=== PATIENT | female | born 1960 | race Caucasian/White ===

== ENCOUNTER 2018-02-07 09:53 | Emergency (ER) | payer OTHER ==
[~2018-02-07] VITALS: Ht 162.6 cm; Wt 69.0 kg
[2018-02-07 09:55] VITALS: TEMP 36.3; Ht 162.6 cm; Wt 69.0 kg
[2018-02-07] MEDS ORDERED: ONDANSETRON INJ 2 MG/ML 2 ML VIAL IV STA (10:17)
[2018-02-07] MEDS ORDERED: MoRPHine SULFATE 10 MG/ML CARP/VIAL IV STA ×2 (10:17→10:49)
[2018-02-07] MEDS ORDERED: PROB1TAB16 PO (11:06)
[2018-02-07] MEDS ORDERED: CLON1TAB3 PO (11:06)
[2018-02-07] MEDS ORDERED: METH10TA4 PO ×2 (11:06)
[2018-02-07] MEDS ORDERED: BACL10TA PO (11:06)
[2018-02-07] MEDS ORDERED: PRMT25 PO (11:06)
[2018-02-07] MEDS ORDERED: [UNRECOGNIZED DRUG - OTHER] IV (11:06)
[2018-02-07] MEDS ORDERED: ERGO500037 PO (11:06)
[2018-02-07] MEDS ORDERED: MILK OF MAGNESIA PO (11:06)
[2018-02-07] MEDS ORDERED: IVIG IV (11:06)
[2018-02-07] MEDS ORDERED: CTP/1 PO (11:06)
[2018-02-07] MEDS ORDERED: [UNRECOGNIZED DRUG - OTHER] IR (11:06)
[2018-02-07] MEDS ORDERED: SODIUM CHLORIDE 0.9% 1000ML 1,000 ML IV STA (11:14)
--- NOTE | 2018-02-07 11:18 | DIAGNOSTIC IMAGING REPORT ---
LEFT WRIST 2 VIEWS HISTORY: Left wrist pain. LEFT WRIST, EVAL FX COMPARISON: None. FINDINGS: Comminuted fractures involving the distal radius and ulna. The radial fracture extends to the articular surface. Both of these fractures demonstrate dorsal displacement of 12 mm. Soft tissue swelling. The carpal bones appear intact. No radiopaque foreign bodies. IMPRESSION: Comminuted and displaced distal radius and ulnar fractures Electronically signed by: Cornelius Mills M.D. 02/07/2018 11:17 AM Dictated Date/Time: 02/07/2018 11:16 AM
[2018-02-07] MEDS ORDERED: LIDOCAINE 1% BUFFERED INJ 5 ML VIAL INFIL ONE (11:30)
[2018-02-07] MEDS ORDERED: PROPOFOL IV EMULSION 10 MG/ML 20 ML VIAL IV ONE (11:47)
[2018-02-07] MEDS ORDERED: ONDA4TAB10 SL (12:47)
[2018-02-07] MEDS ORDERED: HYDR-5688 PO (12:47)
--- NOTE | 2018-02-07 12:49 | DIAGNOSTIC IMAGING REPORT ---
L WRIST 2 VIEW CLINICAL HISTORY: Fracture status post reduction COMPARISON: 02/07/2018 DISCUSSION: There has been interval reduction of the previously described fractures of the distal radius and ulna. There has been application of a plaster cast. The fractures demonstrate 4 mm of maximal displacement. The radial articular surface has a dorsal tilt of approximately 11 degrees. IMPRESSION: Interval reduction of the previously described fractures of the distal radius and ulna with application of a plaster cast Electronically signed by: Jose Waldron M.D. 02/07/2018 12:48 PM Dictated Date/Time: 02/07/2018 12:47 PM
--- NOTE | 2018-02-07 12:50 | EMERGENCY ROOM VISIT NOTE ---
ED Visit Note First contact with patient: 10:00 CHIEF COMPLAINT: Left wrist injury 30 minutes ago HISTORY OF PRESENT ILLNESS: Patient is a [id number] 57-year-old female who presents the emergency department accompanied by female friend for evaluation of left wrist pain with deformity. Patient reports that she was walking on a ramp with her service dog, when she lost her balance and fell injuring the left wrist. There is an obvious deformity of the wrist and she rates her pain a 10/10. Patient came directly to the emergency department. She denies any lightheadedness or dizziness preceding the fall. She has done nothing for her pain. She complains of slight numbness in her fingers. REVIEW OF SYSTEMS: Review of systems as per HPI. All other systems reviewed were negative. 10 systems reviewed. PMH: Electronic medical records are reviewed and summarized as above/below. See Problem List. SOCIAL HISTORY: Patient lives at home in [place], she is here visiting a friend. Former smoker. PHYSICAL EXAM: Vital Signs: Reviewed Nurse's notes. CONSTITUTIONAL: Patient is a tearful, uncomfortable 57-year-old female who is awake and alert and in no acute distress. HEART: Regular rate and rhythm. LUNGS: Clear to auscultation. MUSCULOSKELETAL: Examination of the left wrist show her arm propped up on a pillow, with obvious swan-neck deformity of the distal radius. She has pain to palpation with any attempts at palpation or movement of the wrist. She can wiggle her fingers slightly, sensation to light touch over the finger and hands is diminished. Capillary refill is brisk. Skin is intact without laceration. No bleeding. She has a PICC line in the left upper arm. EMERGENCY DEPARTMENT COURSE: IV lock was initiated patient was medicated with morphine 6 mg IV x 2, and Zofran 4 mg IV. X-rays of the left wrist were obtained. She was given ice packs. X-ray findings were reviewed with her. At this point, she requested some IV fluids for her dysautonomia, she typically administers 1 L through her PICC line daily. Her peripheral IV site was used and she was given a liter of normal saline solution. Patient history and presentation were reviewed with Dr. Morales who also independently evaluated the patient. [facility] was consulted at the patient's and friend's request, they reviewed the x-rays and presented to the emergency department. Close reduction was performed by Dr. Nunn with conscious sedation administered by Dr. Morales. Please refer to their separate dictations for further information. Patient was reassessed after reduction and splint placement. Splint placement was verified by me and was satisfactory. Patient remained neurovascularly intact. The numbness in her fingers with markedly improved. Arm sling was applied. She was recovered from sedation per protocol. Postreduction x-rays showed improved anatomic alignment. She received the entire liter of normal saline solution. She did request something for discomfort prior to discharge and was given Toradol 30 mg IV. She does not generally tolerate narcotics well and would like to avoid them if possible. Conservative care measures were discussed including care of her splint and signs and symptoms of compartment syndrome. X-rays were provided to her on a CD for follow-up purposes when she returns home to [place]. The patient was discharged to home with her friend driving, she rated her wrist pain a 5/10 at discharge. Medication reconciliation: I attest that I have personally reviewed the patient' s current medication list. Blood pressure screening : Patient was found to have normal blood pressure on screening and does not require follow-up. LEFT WRIST 2 VIEWS HISTORY: Left wrist pain. LEFT WRIST, EVAL FX COMPARISON: None. FINDINGS: Comminuted fractures involving the distal radius and ulna. The radial fracture extends to the articular surface. Both of these fractures demonstrate dorsal displacement of 12 mm. Soft tissue swelling. The carpal bones appear intact. No radiopaque foreign bodies. IMPRESSION: Comminuted and displaced distal radius and ulnar fractures Fluoroscopic views of the left wrist (2 views) CLINICAL HISTORY: LEFT WRIST REDUCTION MINI C-ARM COMPARISON STUDY: 02/07/2018 FINDINGS: 2 seconds of fluoroscopic time was utilized. 2 fluoroscopic spot images are provided for interpretation. There is been interval reduction of the previously described distal radial and ulnar fractures. The fine bony detail is limited due to the fluoroscopic spot technique. IMPRESSION: Interval reduction of the previous identified radial and ulnar fractures. Problem List Medical Problems: (1) Dysautonomia Status: Chronic (2) Abdi-Danlos syndrome Status: Chronic (3) Gastroparesis Status: Chronic (4) Immunodeficiency Status: Chronic (5) Insomnia Status: Chronic (6) Interstitial cystitis Status: Chronic (7) Occipital neuralgia Status: Chronic (8) Osteoporosis Status: Chronic Current/Historical Medications Scheduled Baclofen (Lioresal), 5 MG PO HS Clonazepam (Klonopin), 1 MG PO HS Clonidine Hcl (Catapres), 0.2 MG PO HS Ergocalciferol (Vitamin D 06276 Unit), 50,000 UNIT PO 2XWK Methylphenidate (Ritalin), 27 MG PO QAM Methylphenidate (Ritalin), 18 MG PO PM Probiotic Product (Probiotic), 1 TAB PO QAM [Dmso], IR MONTHLY [Ivig], IV MONTHLY [Milk Of Magnesia ], 3 TABS PO HS [Saline Infusion], IV DAILY Scheduled PRN Hydrocodone/Acetaminophen 5MG/325MG ([place] 5MG/325MG), 1-2 TABLETS PO Q4 PRN for Pain Midodrine (Midodrine HCl), 5 MG PO DAILY PRN for UNDECIDED Ondasetron Odt (Zofran Odt), 4 MG SL Q6H PRN for Nausea or Vomiting Allergies Coded Allergies: Sulfa Antibiotics (Verified Allergy, Intermediate, SWELLING, 02/07/18) Metoclopramide (Verified Adverse Reaction, Mild, "HYPER, SHAKEY", 02/07/18) Vital Signs Date Time Temp Pulse Resp B/P (MAP) Pulse Ox O2 Delivery O2 Flow Rate FiO2 02/07/18 14:00 65 129/73 97 Room Air 02/07/18 13:15 75 17 111/53 94 Room Air 02/07/18 13:14 79 18 114/65 100 Nasal Cannula 3.0 02/07/18 13:11 15 02/07/18 13:07 74 12 117/75 96 Room Air 02/07/18 12:50 80 22 123/84 98 Nasal Cannula 2.0 02/07/18 12:40 80 20 125/86 99 Nasal Cannula 2.0 02/07/18 12:35 76 15 129/81 99 Nasal Cannula 3.0 02/07/18 12:32 78 02/07/18 12:30 79 18 114/65 100 Nasal Cannula 3.0 02/07/18 12:25 81 15 122/83 100 Non-Rebreather 15.0 02/07/18 12:20 77 18 115/82 100 Room Air 15.0 Non-Rebreather 02/07/18 12:16 79 14 114/79 100 Non-Rebreather 15.0 02/07/18 12:11 79 21 99/64 100 Non-Rebreather 15.0 02/07/18 12:09 79 14 100 Non-Rebreather 15.0 02/07/18 12:07 83 15 123/58 100 Room Air 15.0 Non-Rebreather 02/07/18 12:05 83 20 121/61 100 Non-Rebreather 15.0 02/07/18 11:55 77 15 127/60 100 Non-Rebreather 15.0 02/07/18 11:05 82 18 123/56 97 Room Air 02/07/18 09:55 36.3 74 18 120/74 96 Room Air Medications Administered Medications (Trade) Dose Ordered Sig/Kishor Route Start Time Stop Time Status Last Admin Dose Admin Ondansetron HCl (Zofran Inj) 4 mg NOW STAT IV 02/07/18 10:17 02/07/18 10:20 DC 02/07/18 10:33 4 MG Morphine Sulfate (MoRPHine SULFATE INJ) 6 mg NOW STAT IV 02/07/18 10:17 02/07/18 10:20 DC 02/07/18 10:33 6 MG Morphine Sulfate (MoRPHine SULFATE INJ) 6 mg NOW STAT IV 02/07/18 10:49 02/07/18 10:50 DC 02/07/18 11:01 6 MG Sodium Chloride 1,000 ml @ 999 mls/hr Q1H1M STAT IV 02/07/18 11:14 02/07/18 12:14 DC 02/07/18 11:20 999 MLS/HR Lidocaine HCl (Buffered Lidocaine 1% Inj) 20 ml ONE ONCE INFIL 02/07/18 11:30 02/07/18 11:31 DC 02/07/18 11:55 20 ML Ketorolac Tromethamine (Toradol Inj) 30 mg NOW STAT IV 02/07/18 14:01 02/07/18 14:02 DC 02/07/18 14:10 30 MG Departure Information Impression Primary Impression: Closed fracture of left radius and ulna Prescriptions Hydrocodone/Acetaminophen 5MG/325MG ([place] 5MG/325MG) Tab 1-2 TABLETS PO Q4 Y for Pain, #20 TAB For Initial Treatment Prov: Debby Josue PA 02/07/18 Ondasetron Odt (ZOFRAN ODT) 4 Mg Tab 4 MG SL Q6H Y for Nausea or Vomiting, #20 TAB Prov: Debby Josue PA 02/07/18 Referrals No Doctor, Assigned (PCP) Forms WORK / SCHOOL INSTRUCTIONS, HOME CARE DOCUMENTATION FORM, IMPORTANT VISIT INFORMATION Patient Instructions My [facility] Additional Instructions DO NOT drive, drink alcohol, operate machinery, or perform dangerous activities today. You were given medications in the ER that can affect your ability to safely function or operate a vehicle. Hydrocodone/Acetaminophen (Basalt) 5/325 mg: Take 1-2 pills every four hours for breakthrough pain. Avoid alcohol, operating machinery or dangerous equipment, working on ladders or roofs, DRIVING, or situations where being under the influence may be dangerous. It is recommended to use an cykq-zkw-jteybqf stool softener such as Colace, 100mg twice daily while taking this medication to avoid constipation. Zofran(odansetron) tablets 4mg: Take one and allow it to dissolve in your mouth every four to six hours as needed for nausea or vomiting. Ibuprofen(Motrin, Advil) may be used for fever or pain. Use 600mg every six hours as needed. Take with food. Avoid using more than 2400mg in a 24 hour period. Do not use 2400mg per day for more than three consecutive days without physician direction. Prolonged inappropriate use can lead to stomach upset or ulcers. This medication can be taken if you need to drive, work, or perform activities which may be dangerous when taking narcotic pain medication. (AND/OR) Acetaminophen(Tylenol) may be used for fever or pain. Use 1000mg every six hours as needed. Avoid using more than 3000mg in a 24 hour period. This medication can be taken if you need to drive, work, or perform activities which may be dangerous when taking narcotic pain medication. Ice compresses for 20 minutes at a time four times daily for 2-3 days. Use the sling as instructed. Remove your arm from the sling 4-6 times a day and move all the joints around to keep them loose. Rest and elevate your injury. Do not get the splint wet. If your splint feels excessively tight, you have worsening pain, develop numbness or tingling, or your digits appear blue, loosen the sarah wrap. Then reapply the sarah wrap gently without removing the splint. If your symptoms are not quickly relieved return to the ER for re- evaluation. Continue current medications. Return to the ER immediately for any numbness, tingling, severe pain, extreme swelling in the extremity or as needed. Follow up with orthopedic surgeon of your choice when you return home for further care and management of your fracture. Problem Qualifiers Primary Impression: Closed fracture of left radius and ulna Encounter type: initial encounter Qualified Codes: S52.92XA - Unspecified fracture of left forearm, initial encounter for closed fracture; S52.202A - Unspecified fracture of shaft of left ulna, initial encounter for closed fracture
--- NOTE | 2018-02-07 13:09 | EMERGENCY ROOM VISIT NOTE ---
Pre-Mod Sedation Assessment General Date of Moderate Sedation: Feb 07, 2018. Vital Signs: Vital Signs Past 12 Hours Date Time Temp Pulse Resp B/P (MAP) Pulse Ox O2 Delivery O2 Flow Rate FiO2 02/07/18 13:07 74 12 117/75 96 Room Air 02/07/18 12:50 80 22 123/84 98 Nasal Cannula 2.0 02/07/18 12:40 80 20 125/86 99 Nasal Cannula 2.0 02/07/18 12:35 76 15 129/81 99 Nasal Cannula 3.0 02/07/18 12:32 78 02/07/18 12:30 79 18 114/65 100 Nasal Cannula 3.0 02/07/18 12:25 81 15 122/83 100 Non-Rebreather 15.0 02/07/18 12:20 77 18 115/82 100 Room Air 15.0 Non-Rebreather 02/07/18 12:16 79 14 114/79 100 Non-Rebreather 15.0 02/07/18 12:11 79 21 99/64 100 Non-Rebreather 15.0 02/07/18 12:09 79 14 100 Non-Rebreather 15.0 02/07/18 12:07 83 15 123/58 100 Room Air 15.0 Non-Rebreather 02/07/18 12:05 83 20 121/61 100 Non-Rebreather 15.0 02/07/18 11:55 77 15 127/60 100 Non-Rebreather 15.0 02/07/18 11:05 82 18 123/56 97 Room Air 02/07/18 09:55 36.3 74 18 120/74 96 Room Air Pre-Sedation Airway Assessment Oral Cavity: WNL Able to Visualize Vocal Cords: No Short Thick Neck: No Hx of Sleep Apnea: No Smoking Status: Former Smoker Mallampati Classification: Class III (Soft palate, base of uvula) ASA Classification: Class II Procedure Planning Contraindications-for Mod Sed: None Yes Notes The planned sedation has been discussed with the patient and consent obtained. I have identified the patient, determined the appropriateness of sedation and have assessed the patient immediately prior to the procedure. All medicine(s) and interventions are by my order.
--- NOTE | 2018-02-07 13:11 | EMERGENCY ROOM VISIT NOTE ---
Post-Moderate Sedation Plan General Date of Moderate Sedation Feb 07, 2018. Vital Signs: Vital Signs Past 12 Hours Date Time Temp Pulse Resp B/P (MAP) Pulse Ox O2 Delivery O2 Flow Rate FiO2 02/07/18 13:07 74 12 117/75 96 Room Air 02/07/18 12:50 80 22 123/84 98 Nasal Cannula 2.0 02/07/18 12:40 80 20 125/86 99 Nasal Cannula 2.0 02/07/18 12:35 76 15 129/81 99 Nasal Cannula 3.0 02/07/18 12:32 78 02/07/18 12:30 79 18 114/65 100 Nasal Cannula 3.0 02/07/18 12:25 81 15 122/83 100 Non-Rebreather 15.0 02/07/18 12:20 77 18 115/82 100 Room Air 15.0 Non-Rebreather 02/07/18 12:16 79 14 114/79 100 Non-Rebreather 15.0 02/07/18 12:11 79 21 99/64 100 Non-Rebreather 15.0 02/07/18 12:09 79 14 100 Non-Rebreather 15.0 02/07/18 12:07 83 15 123/58 100 Room Air 15.0 Non-Rebreather 02/07/18 12:05 83 20 121/61 100 Non-Rebreather 15.0 02/07/18 11:55 77 15 127/60 100 Non-Rebreather 15.0 02/07/18 11:05 82 18 123/56 97 Room Air 02/07/18 09:55 36.3 74 18 120/74 96 Room Air Review - Discharge Plan Post Moderate Sedation Plan: Procedure lasted for a total of 20 minutes from 1207 11/27/2026. At the end of the procedure patient was able to sit up cough consider name and location. She was given a total of 120 mg of propofol over this time period. She tolerated the procedure well. On clinical assessment, the patient appears to have tolerated the conscious sedation without complications. Patient is recovering as anticipated. Patient will continue to be monitored by nursing and may be discharged when conscious sedation discharge criteria are met.
[2018-02-07 13:14] VITALS: BP 114/65; PULSE 79; O2SAT 100
--- NOTE | 2018-02-07 13:14 | EMERGENCY ROOM VISIT NOTE ---
ED Visit Note First contact with patient: 10:00 Staff note: I have seen and examined this patient. I have discussed this case with my PA and generally agree with the ED note and findings. Patient has a left wrist fracture. Sedation was requested by orthopedics who initially performed a left hematoma block. I perform the procedure as listed below. PROCEDURE: Procedural sedation Procedural sedation lasted for a total of 20 minutes from 1207 to 1227. At the end of the procedure patient was able to sit up cough and state name and location. She was given a total of 120 mg of propofol over this time period. She tolerated the procedure well. EM PROCEDURE NOTE- PROCEDURAL SEDATION Sedation Level: Moderate PRIOR TO THE PROCEDURE THE FOLLOWING INFORMATION WAS VERIFIED: Procedure/Indication: sedation for L wrist fracture Verify Correct Patient: Yes Verify Correct Site: Yes Verify Correct Procedure: Yes Patient has been NPO for 3 hours Airway Assessment: Normal anatomy Procedure sedation was discussed with the patient. Risks and benefits were explained with the possible risks including but not limited to hypotension, allergic reaction, vomiting, pneumonia, loss of respiratory effort, cardiac arrest, and emergence reaction. PROCEDURE NOTE: Preparation for the sedation procedure included: manager monitoring, IV access, pulse oxymetry, ETCO2 monitor, oxygen, suction and ambu bag. Sedation was accomplished using propofol 110mg IV. I provided anesthesia care for this patient for 20 minutes. Metalizing Supervisor/Underwriting Support Specialist: Sonny Morales DO. Complication(s) during the procedure: None Mental status post procedure: Response to verbal stimuli - Appropriate Disposition See nurses record for monitoring/vital signs Alert prior to discharge
--- NOTE | 2018-02-07 13:16 | Medical Consult ---
Consultation Note Date of Service Feb 07, 2018. Consultation Note CHIEF COMPLAINT: Left wrist injury. HISTORY OF PRESENT ILLNESS: Katherine is a pleasant 57-year-old female, who slipped and fell, while walking on a ramp with her service dog, on her left outstretched arm earlier this morning. She is right-hand dominant. She is feeling in her usual state of health prior to this injury. She is from [place] and was planning to go home this Monday. She rates her pain a 10/10. Past medical history: Eherls-Danlos syndrome, dysautonomia, gastroparesis, immunodeficiency, insomnia, occipital neuralgia, osteoporosis, interstitial cystitis. past surgical history: Appendectomy, occipital stimulator, shoulder surgery. MEDICATIONS: Obtained from the EMR. Scheduled Baclofen (Lioresal), 5 MG PO HS Clonazepam (Klonopin), 1 MG PO HS Clonidine Hcl (Catapres), 0.2 MG PO HS Ergocalciferol (Vitamin D 47262 Unit), 50,000 UNIT PO 2XWK Methylphenidate (Ritalin), 27 MG PO QAM Methylphenidate (Ritalin), 18 MG PO PM Probiotic Product (Probiotic), 1 TAB PO QAM [Dmso], IR MONTHLY [Ivig], IV MONTHLY [Milk Of Magnesia ], 3 TABS PO HS [Saline Infusion], IV DAILY Scheduled PRN Hydrocodone/Acetaminophen 5MG/325MG ([place] 5MG/325MG), 1-2 TABLETS PO Q4 PRN for Pain Midodrine (Midodrine HCl), 5 MG PO DAILY PRN for UNDECIDED Ondasetron Odt (Zofran Odt), 4 MG SL Q6H PRN for Nausea or Vomiting. ALLERGIES: Sulfa and Metoclopramide. FAMILY HISTORY: Noncontributory. SOCIAL HISTORY: She lives in [place] and was visiting a friend. She is a former smoker. REVIEW OF SYSTEMS: A 10-point review of systems is noted in the shared emergency room medical record. PHYSICAL EXAM: Patient is in obvious pain, but no acute distress breathing easily at 16 breaths per minute. They have an appropriate mood and affect. They weigh 69 kg and are 162.6 cm tall. Focusing on her left upper extremity, she has 2+ radial pulse, sensation to light touch is diminished in all her fingers, she is able to wiggle her fingers to a limited extent. She has an obvious deformity about the distal radius. Her skin is intact. RADIOGRAPHS: Comminuted, displaced, distal radius/ulna fracture, extra- articular. IMPRESSION: Displaced, comminuted, distal radius/ulna fracture, extra-articular , closed, emergency room visit. PLAN:. After a lengthy discussion with the patient today regarding my above clinical findings, as well as reviewing her radiographs, was recommended that she undergo a hematoma block, with conscious sedation, removal of her ring, and closed reduction of the left wrist. The risks and benefits of performing the procedure were discussed with the patient and the informed consent was obtained by myself. She wished to proceed. She was given cast care instructions as well as compartment syndrome warning signs. She will ice and elevate and will use a sling. She will need to follow-up with an orthopedist back home in [place] within the next week to have continued close monitoring. She will follow -up with me on an as needed basis. The patient understood all my instructions and explanation; all their questions were satisfactorily addressed. PROCEDURE: After performing a timeout identifying the left wrist as the correct arm for the procedure. The dorsal aspect of the wrist was prepped with Betadine followed by ethylene chloride spray and alcohol wipe. Then 10 cc of 1 % lidocaine plain were used to administer a hematoma block in the standard fashion. The patient then underwent conscious sedation by the emergency room, one-sided taken affect, using lube and umbilical tape, the ring was able to be removed from her ring finger. The closed reduction was then performed in the standard fashion. Mini C-arm was utilized to confirm a near anatomic reduction both in the AP and lateral projections. The patient was then splinted in a 3- point molded volar and dorsal splint with a posterior component due to her PICC line in the left elbow. Fluoroscopic images were obtained to show again the maintenance of the reduction of both the distal radius and ulnar fractures. Post reduction, the patient's pain was substantially improved. Her sensation to light touch was back to normal. Her motor to her median, radial, ulnar, AIN , and PIN was intact. She had brisk cap refill in her digits.She will follow all of the above instructions.
[2018-02-07] MEDS ORDERED: KETOROLAC TROMETHAMINE 30 MG/ML VIAL IV STA (14:01)
[2018-02-07 14:35] VITALS: BP 114/64; PULSE 72; O2SAT 96
--- NOTE | 2018-02-07 17:45 | [facility] Operative Report ---
Operative Report Operative Date Feb 07, 2018. Pre-Operative Diagnosis left distal radius and ulna fracture, extra-articular, displaced. Post-Operative Diagnosis same Procedure(s) Performed Closed reduction left distal radius and ulnar fractures. Removal of wedding ring. Surgeon Kaleb Nunn M.D. Natural Fabricator Surgeon(s) Efrain Zuñiga M.D. and Victor Hugo Rodriges PA-C Estimated Blood Loss 0 Findings as noted above. Drains None Anesthesia Type Other (hematoma block plus conscious sedation performed by the ER) Complication(s) none Disposition remained in the emergency room Indications The patient is a 67-year-old female, with a displaced left distal radius and ulnar fractures. Due to the displacement and significant pain and decreased sensation, recommended undergoing hematoma block, closed reduction of the left wrist fracture. The risks and benefits of the closed reduction were discussed and the patient agreed to proceed with surgery. Description of Procedure After performing a time-out identifying the left wrist as the correct arm for the procedure. The dorsal aspect of the wrist was prepped with Betadine followed by ethylene chloride spray and alcohol wipe. Then 10 cc of 1% lidocaine plain were used to administer a hematoma block in the standard fashion. The patient then underwent conscious sedation by the emergency room, one-sided taken affect, using lube and umbilical tape, the ring was able to be removed from her ring finger. The closed reduction was then performed in the standard fashion. Mini C-arm was utilized to confirm a near anatomic reduction both in the AP and lateral projections. The patient was then splinted in a 3- point molded volar and dorsal splint with a posterior component due to her PICC line in the left elbow. Fluoroscopic images were obtained to show again the maintenance of the reduction of both the distal radius and ulnar fractures. Post reduction, the patient's pain was substantially improved. Her sensation to light touch was back to normal. Her motor to her median, radial, ulnar, AIN , and PIN was intact. She had brisk cap refill in her digits.She will follow all of the above instructions. I attest to the content of the Intraoperative Record and any orders documented therein. Any exceptions are noted below.
== END 2018-02-07 14:35 | disposition home or self-care (01) ==
LOC: C.EDB 09:54
DX: S52.602A Unspecified fracture of lower end of left ulna, initial encounter for closed fracture (principal); S52.552A Other extraarticular fracture of lower end of left radius, initial encounter for closed fracture; W01.0XXA Fall on same level from slipping, tripping and stumbling without subsequent striking against object, initial encounter; Y93.01 Activity, walking, marching and hiking; Y99.8 Other external cause status; G90.1 Familial dysautonomia [Riley-Day]; M81.0 Age-related osteoporosis without current pathological fracture; Q79.6 Ehlers-Danlos syndromes; Z87.891 Personal history of nicotine dependence; Z88.1 Allergy status to other antibiotic agents; Z88.8 Allergy status to other drugs, medicaments and biological substances; Z90.89 Acquired absence of other organs; Z98.890 Other specified postprocedural states